=== PATIENT | female | born 1955 | race Caucasian/White ===

== ENCOUNTER 2018-07-01 06:50 | Emergency (ER) | payer BC ==
--- NOTE | 2018-07-01 07:40 | ER Document Report ---
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 Patient states that her discomfort and symptoms began last evening and she has had 6 episodes of loose stool with the last one being bloody. Patient states that she has not had symptoms like this previously. She has been able to eat and drink, but does have decreased p.o. intake. She is urinating normally. She has not noticed any melena. She has not no history of alcoholism. Patient states that she has never had a colo noscopy before. Denies drug allergies. Denies any headache, fever, URI, sore throat, chest pain, palpitations, syncope, cough, shortness of breath, wheeze, dyspnea, nausea/vomiting, urinary retention, dysuria, hematuria, back pain, loss of control of bowel or bladder, numbness/tingling, saddle anesthesia, muscle paralysis/weakness, or rash. She is not on any blood thinners. Past Medical History - Social History Smoking Status: Current Every Day Smoker Family History: Reviewed & Not Pertinent Review of Systems - Review of Systems -: Yes All other systems reviewed and negative Physical Exam - Vital signs Vitals: Temp Pulse Resp BP Pulse Ox 97.7 F 72 16 137/68 H 97 07/01/18 06:52 07/01/18 06:52 07/01/18 06:52 07/01/18 06:52 07/01/18 06:52 - Notes Notes: PHYSICAL EXAMINATION: Accompanied by female nurse. GENERAL: Well-appearing, well-nourished and in no acute distress. HEAD: Atraumatic, normocephalic. EYES: Pupils equal round and reactive to light, extraocular movements intact, sclera anicteric, conjunctiva are normal. ENT: Nares patent and without discharge. oropharynx clear without exudates. No tonsilar hypertrophy or erythema. Moist mucous membranes. NECK: Normal range of motion, supple without lymphadenopathy LUNGS: Breath sounds clear to auscultation bilaterally and equal. No wheezes rales or rhonchi. HEART: Regular rate and rhythm without murmurs, rubs, gallops. ABDOMEN: Soft, nontender, nondistended abdomen. No guarding, no rebound. No masses appreciated. Normal bowel sounds present. No CVA tenderness bilaterally. Rectal: + scant red blood noted. No melena. Non-tender. No obvious abnormality otherwise. Musculoskeletal: FROM to passive/active. Strength 5+/5. Extremities: No cyanosis, clubbing, or edema b/l. Peripheral pulses 2+. Capillary refill less than 3 seconds. NEUROLOGICAL: Cranial nerves grossly intact. Normal speech, normal gait. N ormal sensory, motor exams PSYCH: Normal mood, normal affect. SKIN: Warm, Dry, normal turgor, no rashes or lesions noted. Course - Re-evaluation Re-evalutation: 07/01/18 09:[address] Allred who is in agreement with dispo/plan: Patient is an afebrile, well-hydrated, 62-year-old female who presents to the ED with a suspected lower GI bleed. Vitals are acceptable without any significant tachycardia, tachypnea, or hypoxia. PE is otherwise unremarkable. Patient's abdomen is soft nontender. Patient is hemodynamically stable at this time. Patient is nontoxic-appearing and is able to tolerate p.o. without difficulty. CBC, CMP, lipase, urinalysis are unremarkable for any acute pathology. No further labs or imaging warranted at this time. Low suspicion/risk for acute appendicitis, bowel obstruction, acute cholecystitis, acute cholangitis, perforated diverticulitis, incarcerated hernia, pancreatitis, perforated ulcer, peritonitis, sepsis, pelvic inflammatory disease, ectopic , tubo- ovarian abscess, ovarian torsion, or other systemic emergent condition at this time. Patient is aware that her condition can change from initial presentation and she needs to monitor symptoms closely and seek medical attention if any acute changes. I did review the most serious causes of GI bleeding in regards to cancer to the patient and stressed the importance of follow-up as she may need a colonoscopy. Conservative measures otherwise for symptoms. Recheck with your PCM in 2-3 days. Call gastroenterology today to schedule an appointment for further evaluation and management. Return to the ED with any w orsening/concerning symptoms otherwise as reviewed in discharge. Patient is in agreement. - Vital Signs Vital signs: Temp Pulse Resp BP Pulse Ox 97.7 F 72 16 137/68 H 97 07/01/18 06:52 07/01/18 06:52 07/01/18 06:52 07/01/18 06:52 07/01/18 06:52 - Laboratory Result Diagrams: 07/01/18 07:40 07/01/18 07:40 Laboratory results interpreted by me: 07/01/18 07/01/18 07:40 08:40 Sodium 127.6 L Chloride 91 L Urine Ascorbic Acid 40 H Discharge - Discharge Clinical Impression: Blood in stool, karli Condition: Stable Disposition: HOME, SELF-CARE Instructions: Positive Test for Blood in Stool ([facility]) Additional Instructions: As reviewed, you have red blood in your stool which most likely indicates a lower GI bleed. The cause can range from something simple like inflammatio n/hemorrhoid to something cancerous. It is important that he follow-up with gastroenterology. Maintain adequate fluid and food intake Healthy diet tylenol if needed Monitor for any worsening symptoms Make sure you are staying hydrated enough to urinate and have normal BM's Recheck with your PCM in 2-3 days Call gastroenterology today to schedule an appointment for further evaluation and management. You may need a colonoscopy to further evaluate. Return to the ED with any worsening symptoms and/or development of fever, headache, chest pain, palpitations, syncope, shortness of breath, trouble breathing, abdominal pain, n/v/d, blood in stool/urine, weakness, or other worsening symptoms that are concerning to you. Referrals: RATNA PORTER MD [ACTIVE STAFF] - Follow up as needed EYAD MARTINEZ MD [ACTIVE STAFF] - Follow up as needed CAMILLE GEORGE MD [ACTIVE STAFF] - Follow up as needed ANGELIC UGARTE NP [Primary Care Provider] - Follow up tomorrow
[2018-07-01 08:05] LABS: ABSOLUTE EOSINOPHILS # (AUTO) 0.1 10^3/uL (0.0-0.6); ABSOLUTE LYMPHOCYTES (AUTO) 1.5 10^3/uL (0.5-4.7); ABSOLUTE MONOCYTES (AUTO) 0.6 10^3/uL (0.1-1.4); BASOPHILS % (AUTO) 0.4 % (0-2); EOSINOPHILS % (AUTO) 1.6 % (0-6); HEMATOCRIT 40.8 % (36.0-47.0); HEMOGLOBIN 14.3 g/dL (12.0-15.5); LYMPHOCYTES % (AUTO) 16.1 % (13-45); MEAN CORPUSCULAR HEMOGLOBIN 31.1 pg (27.0-33.4); MEAN CORPUSCULAR VOLUME 89 fl (80-97); MONOCYTES % (AUTO) 5.9 % (3-13); PLATELET COUNT 300 10^3/uL (150-450); RED CELL DISTRIBUTION WIDTH 12.7 % (11.5-14.0); TOTAL CELLS COUNTED % (AUTO) 100 %; WHITE BLOOD COUNT 9.3 10^3/uL (4.0-10.5)
[2018-07-01 08:23] LABS: ALANINE AMINOTRANSFERASE 13 U/L (9-52); ALBUMIN 4.3 g/dL (3.5-5.0); ALKALINE PHOSPHATASE 71 U/L (38-126); ANION GAP 12 (5-19); ASPARTATE AMINO TRANSFERASE 23 U/L (14-36); BILIRUBIN,DIRECT 0.3 mg/dL (0.0-0.4); BILIRUBIN,TOTAL 0.6 mg/dL (0.2-1.3); BLOOD UREA NITROGEN 14 mg/dL (7-20); CALCIUM 9.6 mg/dL (8.4-10.2); CARBON DIOXIDE 25 mmol/L (22-30); CHLORIDE 91 mmol/L (98-107); GLUCOSE 96 mg/dL (75-110); LIPASE 62.5 U/L (23-300); POTASSIUM 4.9 mmol/L (3.6-5.0); SODIUM 127.6 mmol/L (137-145); TOTAL PROTEIN 6.8 g/dL (6.3-8.2)
[2018-07-01 08:57] LABS: APPEARANCE,URINE SLIGHTLY-CLOUDY; BILIRUBIN,URINE NEGATIVE (NEGATIVE); COLOR,URINE YELLOW; GLUCOSE, URINE NEGATIVE (NEGATIVE); KETONES,URINE NEGATIVE (NEGATIVE); LEUKOCYTE ESTERASE,URINE NEGATIVE (NEGATIVE); NITRITE,URINE NEGATIVE (NEGATIVE); PROTEIN,URINE NEGATIVE (NEGATIVE); URINE SPECIFIC GRAVITY 1.019; UROBILINOGEN,URINE NEGATIVE mg/dL (<2.0)
[2018-07-01 09:58] VITALS: BP 147/68
== END 2018-07-01 10:00 | disposition home or self-care (01) ==
LOC: ER 06:50
DX: K92.1 Melena (principal); R10.9 Unspecified abdominal pain; F17.200 Nicotine dependence, unspecified, uncomplicated; Z90.710 Acquired absence of both cervix and uterus
CPT/HCPCS: 36415; 80053; 81001; 83690; 85025; 86850; 86900; 86901; 87086; 99284